=== PATIENT | female | born 1945 | race Caucasian/White ===

== ENCOUNTER 2016-10-04 05:37 | Day surgery (SDC) | payer MEDICARE, OTHER ==
--- NOTE | ~2016-10-04 | EGD ---
EGD REPORT [facility] [address] [place] [address] NAME: GEORGIANA BLEVINS : [birth year] STATUS : REG [facility]#: [id number] AGE: 71 ADM/REG DATE : 10/04/16 MR#: [id number] REPORT SERV DATE: 10/04/16 DICTATED BY: TRINIDAD SEVILLA DATE: 10/04/16 REPORT STATUS : Draft TRANSCRIBED BY: [facility] DATE: 10/04/16 Endoscopy Center Patient Name: Georgiana Blevins Date of : 1945 Attending MD: TRINIDAD SEVILLA MD Procedure Date No Time: 10/04/2016 Procedure: Colonoscopy Indications: Diarrhea, Last colonoscopy: February 2008 Medicines: See the Anesthesia note for documentation of the administered medications Complications: No immediate complications. Procedure: Pre-Anesthesia Assessment: - ASA Grade Assessment: III - A patient with severe systemic disease. After I obtained informed consent, the scope was passed under direct vision. Throughout the procedure, the patient's blood pressure, pulse, and oxygen saturations were monitored continuously. The PCF [id number] was introduced through the anus and advanced to the terminal ileum, with identification of the appendiceal orifice and IC valve. The colonoscopy was performed without difficulty. The patient tolerated the procedure well. The quality of the bowel preparation was adequate. Findings: The perianal and digital rectal examinations were normal. The terminal ileum appeared normal. Internal hemorrhoids were found during retroflexion and were small. A sessile polyp was found in the ascending colon. The polyp was small in size. The polyp was removed with a cold biopsy forceps. Resection and retrieval were complete. The ascending colon appeared normal. Biopsies were taken with a cold forceps for histology. A sessile polyp was found in the rectum. The polyp was small in size. The polyp was removed with a cold biopsy forceps. Resection and retrieval were complete. The rectum appeared normal. Biopsies were taken with a cold forceps for histology. Impression: - The examined portion of the ileum was normal. - Internal hemorrhoids. - One small polyp in the ascending colon. Resected and retrieved. - The ascending colon is normal. Biopsied. - One small polyp in the rectum. Resected and retrieved. EGD REPORT [address] [address] NAME: GEORGIANA BLEVINS : [birth year] STATUS : [place] [facility] [place] PAT#: [id number] AGE: 71 ADM/REG DATE : 10/04/16 MR#: [id number] REPORT SERV DATE: 10/04/16 DICTATED BY: TRINIDAD SEVLILA DATE: 10/04/16 REPORT STATUS : Draft TRANSCRIBED BY: [employer] DATE: 10/04/16 - The rectum is normal. Biopsied. Recommendation: - Patient has a contact number available for emergencies. The signs and symptoms of potential delayed complications were discussed with the patient. Return to normal activities tomorrow. Written discharge instructions were provided to the patient. - Regular diet. - Continue present medications. - Repeat colonoscopy for surveillance based on pathology results. - FOR YOUR BIOPSY RESULTS: Please go to [email or web address] and register to receive your results via the portal. Your biopsy results will be posted there in about 7 to 10 days. IF you do not see result in 10 days, call office. Procedure Code(s): --- Professional --- 08152, Colonoscopy, flexible, proximal to splenic flexure; with biopsy, single or multiple Diagnosis Code(s): --- Professional --- K64.8, Other hemorrhoids K62.1, Rectal polyp D12.2, Benign neoplasm of ascending colon R19.7, Diarrhea, unspecified CPT copyright 2013 [employer]. All rights reserved. The codes documented in this report are preliminary and upon invoice coder review may be revised to meet current compliance requirements. Trinidad Sevilla MD TRINIDAD SEVILLA MD 10/04/2016 7:36 AM This report has been signed electronically. Number of Addenda: 0 Note Initiated On: 10/04/2016 7:11 AM Scope Withdrawal Time 0 hours 12 minutes 21 seconds [address] [address]
--- NOTE | ~2016-10-04 | EGD ---
EGD REPORT [facility] [address] [address] NAME: GEORGIANA BLEVINS : [birth year] STATUS : [place] [facility] [place] [facility] [place] PAT#: [id number] AGE: 71 ADM/REG DATE : 10/04/16 MR#: [id number] REPORT SERV DATE: 10/04/16 DICTATED BY: TRINIDAD SEVILLA DATE: 10/04/16 REPORT STATUS : Draft [facility]: [facility] DATE: 10/04/16 Endoscopy Center Patient Name: Georgiana Blevins Date of : 1945 Attending MD: TRINIDAD SEVILLA MD Procedure Date No Time: 10/04/2016 Procedure: Upper GI endoscopy Indications: Gastro-esophageal reflux disease, Diarrhea, Belch Medicines: See the Anesthesia note for documentation of the administered medications Complications: No immediate complications. Procedure: Pre-Anesthesia Assessment: - ASA Grade Assessment: III - A patient with severe systemic disease. After obtaining informed consent, the endoscope was passed under direct vision. Throughout the procedure, the patient's blood pressure, pulse, and oxygen saturations were monitored continuously. The GIF H190 [id number] was introduced through the mouth, and advanced to the second part of duodenum. The upper GI endoscopy was accomplished without difficulty. The patient tolerated the procedure well. Findings: The 2nd part of the duodenum was normal. Biopsies were taken with a cold forceps for histology. Mild inflammation was found in the gastric antrum. Biopsies were taken with a cold forceps for histology. The cardia and gastric fundus were normal on retroflexion. A small hiatus hernia was present. There were esophageal mucosal changes suspicious for short-segment Alvarado's esophagus present in the lower third of the esophagus. The maximum longitudinal extent of these mucosal changes was 1 cm in length. Biopsies were taken with a cold forceps for histology. Impression: - Normal 2nd part of the duodenum. Biopsied. - Gastritis. Biopsied. - Hiatus hernia. - Esophageal mucosal changes suspicious for short-segment Alvarado's esophagus. Biopsied. Recommendation: - Patient has a contact number available for emergencies. The signs and symptoms of potential delayed complications were discussed with the patient. Return to normal activities tomorrow. Written discharge EGD REPORT [address] [address] NAME: GEORGIANA BLEVINS : [birth year] STATUS : REG [facility] [place] [facility] [place] PAT#: [id number] AGE: 71 ADM/REG DATE : 10/04/16 MR#: [id number] REPORT SERV DATE: 10/04/16 DICTATED BY: TRINIDAD SEVILLA DATE: 10/04/16 REPORT STATUS : Draft TRANSCRIBED BY: [employer] DATE: 10/04/16 instructions were provided to the patient. - Regular diet. - Continue present medications. - FOR YOUR BIOPSY RESULTS: Please go to [email or web address] and register to receive your results via the portal. Your biopsy results will be posted there in about 7 to 10 days. IF you do not see result in 10 days, call office. Procedure Code(s): --- Professional --- 21788, Esophagogastroduodenoscopy, flexible, transoral; with biopsy, single or multiple Diagnosis Code(s): --- Professional --- K22.9, Disease of esophagus, unspecified K29.70, Gastritis, unspecified, without bleeding K44.9, Diaphragmatic hernia without obstruction or gangrene K21.9, Gastro-esophageal reflux disease without esophagitis R19.7, Diarrhea, unspecified CPT copyright 2013 [employer]. All rights reserved. The codes documented in this report are preliminary and upon computer language coder review may be revised to meet current compliance requirements. Trinidad Sevilla MD TRINIDAD SEVILLA MD 10/04/2016 7:14 AM This report has been signed electronically. Number of Addenda: 0 Note Initiated On: 10/04/2016 7:03 AM Scope Withdrawal Time 0 hours 0 minutes 0 seconds [address] [place] [address]
[~2016-10-04 05:37] MED LIST: ASAB PO; BENTYL10 PO; CATAFLAM50 MG PO; DITRO5 PO; EXELON3 PO; EXELON6 MG PO; KEPPRA500 PO; KEPPRA750 MG PO; LAMICTAL200 MG PO; METHOC750B PO; NAMENXR28 PO; NEXIUM40 PO; PLAVIX PO; VIMPAT200 MG PO; ZOL100 PO
== END 2016-10-04 23:59 | disposition home or self-care (01) ==
LOC: DMU 05:37
PROVIDERS: Internal Medicine Gastroenterology
PROC: 0DBK8ZX Excision of Ascending Colon, Via Natural or Artificial Opening Endoscopic, Diagnostic (ICD-10-PCS; 2016-10-04)
PROC: 0DBP8ZX Excision of Rectum, Via Natural or Artificial Opening Endoscopic, Diagnostic (ICD-10-PCS; 2016-10-04)
PROC: 0DB68ZX Excision of Stomach, Via Natural or Artificial Opening Endoscopic, Diagnostic (ICD-10-PCS; 2016-10-04)
PROC: 0DB38ZX Excision of Lower Esophagus, Via Natural or Artificial Opening Endoscopic, Diagnostic (ICD-10-PCS; 2016-10-04)
PROC: 0DB98ZX Excision of Duodenum, Via Natural or Artificial Opening Endoscopic, Diagnostic (ICD-10-PCS; 2016-10-04)
PROC: 0DBK8ZX Excision of Ascending Colon, Via Natural or Artificial Opening Endoscopic, Diagnostic (ICD-10-PCS; principal; 2016-10-04 07:00)
PROC: 0DBP8ZX Excision of Rectum, Via Natural or Artificial Opening Endoscopic, Diagnostic (ICD-10-PCS; 2016-10-04 07:00)
DX: D12.2 Benign neoplasm of ascending colon (principal); K62.1 Rectal polyp; K64.8 Other hemorrhoids; K44.9 Diaphragmatic hernia without obstruction or gangrene; K22.9 Disease of esophagus, unspecified; K21.9 Gastro-esophageal reflux disease without esophagitis; G47.33 Obstructive sleep apnea (adult) (pediatric); F41.9 Anxiety disorder, unspecified; F32.9 Major depressive disorder, single episode, unspecified; Z88.0 Allergy status to penicillin; Z86.73 Personal history of transient ischemic attack (TIA), and cerebral infarction without residual deficits; Z88.2 Allergy status to sulfonamides; Z88.5 Allergy status to narcotic agent; Z88.8 Allergy status to other drugs, medicaments and biological substances; Z86.69 Personal history of other diseases of the nervous system and sense organs; Z90.710 Acquired absence of both cervix and uterus; Z90.49 Acquired absence of other specified parts of digestive tract; Z98.890 Other specified postprocedural states; Z79.899 Other long term (current) drug therapy
CPT/HCPCS: 88305